=== PATIENT | female | born 1950 | race Caucasian/White ===

== ENCOUNTER 2023-01-01 01:19 | Outpatient (REF) | payer MEDICARE, SELFPAY ==
[2023-01-01 07:33] LABS: Basophils Absolute Auto 0.1 10^3/uL (0.0-0.1); Basophils Percent Auto 0.8 % (0.2-2.0); Eosinophils Absolute Auto 0.3 10^3/uL (0.0-0.7); Eosinophils Percent Auto 3.6 % (0.9-7.0); Hemoglobin 8.1 g/dL (12.0-16.0); Immature Granulocytes Abs Auto 0.04 10^3/uL (0.00-0.03); Immature Granulocytes Pct Auto 0.5 % (0.0-0.5); Lymphocytes Absolute Auto 1.9 10^3/uL (1.2-3.8); Lymphocytes Percent Auto 25.5 % (20.5-60.0); Mean Corpuscular HGB Conc 31.2 g/dL (29.9-35.2); Mean Corpuscular Hemoglobin 28.7 pg (26.7-34.0); Mean Corpuscular Volume 92.2 fL (81.0-99.0); Mean Platelet Volume 10.3 fL (9.5-13.5); Monocytes Absolute Auto 0.6 10^3/uL (0.3-0.8); Monocytes Percent Auto 7.7 % (1.7-12.0); Neutrophils Absolute Auto 4.6 10^3/uL (1.4-6.5); Neutrophils Percent Auto 61.9 % (43.0-75.0); Platelet Count 415 10^3/uL (150-450); Red Blood Count 2.82 10^6/uL (4.20-5.40); Red Cell Distribution Width 15.1 % (11.0-15.0); White Blood Count 7.5 10^3/uL (4.0-11.0)
== END 2023-01-01 01:20 | disposition home or self-care (01) ==
LOC: LAB 01:19
PROVIDERS: PCP Family Medicine; Visit Provider Family Medicine
DX: K37 Unspecified appendicitis (principal)
CPT/HCPCS: 36415; 85025